=== PATIENT | male | born 1995 | race African-American/Black ===

== ENCOUNTER 2018-01-29 18:06 | Emergency (ER) | payer SELFPAY ==
[2018-01-29] MEDS: DIPHTH,PERTUSS(ACELL),TET TOX 0.5 ML DISP.SYRIN. VAX IM (18:46)
== END 2018-01-29 18:50 | disposition home or self-care (01) ==
LOC: ER 18:06
DX: L03.115 Cellulitis of right lower limb (principal); L02.415 Cutaneous abscess of right lower limb
CPT/HCPCS: 90471; 90715; 99283-25